=== PATIENT | female | born 1990 | race Hispanic/Latino ===

== ENCOUNTER 2018-06-05 13:47 | Day surgery (SDC) | payer OTHER ==
[2018-06-05 14:41] VITALS: BMI 39.9
--- NOTE | 2018-06-05 15:21 | PDOC.FPROB ---
FMR OB H&P: HPI - History of Present Illness Chief Complaint: Dizziness, SOB Indentification: 27 yo female at 39.4 wks by LMP/16 wk sono History of Present Illness: Ms. Sanches presents with CC of SOB, dizziness that began while taking a hot shower today. At that time she felt "heavy all over", short of breath, and dizzy like she was going to pass out. She turned on the cold water which helped. After laying down, her SOB resolved and she has not had that since. She has continued headache, now improved to 3/10. Denies contractions, N/V, vision changes, vaginal bleeding, discharge, or LOF. Reports low back cramping. Feels movement. Primary Care Physician: Dr. 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 - Family History Family History: family history of DM, maternal and paternal FMR OB H&P: Medications - Current Home Medications: Medication Instructions Recorded Confirmed Type Ferrous Sulfate [Iron] 325 mg PO DAILY 06/05/18 06/05/18 History Vits96/Iron Fum/Folic 1 tab PO DAILY 06/05/18 06/05/18 History [ Tablet] Allergies/Adverse Reactions: Allergies Allergy/AdvReac Type Severity Reaction Status Date / Time No Known Drug Allergies Allergy Verified 06/05/18 14:28 FMR OB H&P: ROS - Review of Systems General: denies: fever/chills Eyes: denies: vision changes, double vision Cardiovascular: denies: chest pain, palpitation Respiratory: reports: shortness of breath. denies: cough Gastrointestinal: denies: abdominal pain, nausea, vomiting Genitourinary (Female): denies: incontinence, dysuria, vaginal discharge, vaginal bleeding, contractions, vaginal pressure Neurologic: reports: headache. denies: syncope FMR OB H&P: Vital Signs - Heart Tones Baseline: 145 Variability: moderate Acceleration: present Deceleration: absent Category: category 1 [place] contractions every: none FMR OB H&P: Physical Exam - Physical Exam General: NAD, awake, alert and oriented HEENT: normocephalic and atraumatic, MMM, grossly normal vision, grossly normal hearing Heart: RRR, normal S1/S2 General: CTAB, no respiratory distress, good air movement, no rales/rhonchi, no wheezing Abdomen: soft, gravid, non-tender, bowel sound present Skin: good tugor, capillary refill <2 seconds FMR OB H&P: A/P - Problem List (1) Status: Acute Qualifiers: Weeks of gestation: 39 weeks Qualified Code(s): Z3A.39 - 39 weeks gestation of (2) Headache Status: Acute Code(s): R51 - HEADACHE Discussion: Date/Time: 06/05/18 1519 Headache - earlier in day associated with dizziness, feeling of passing out, SOB which has since resolved - could be 2/2 orthostatic vs vasovagal cause - PO hydration - Tylenol given - BMP, H/H not concerning - Orthostatic BPs negative sIUP - reactive strip, no contractions - 1-2/40%/-2 per nurse check - no LOF, bleeding, discharge - taking PNV - incomplete anatomy US-growth WNL, unable to visualize face/nose/lips Anemia of - on iron supplement 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 Pt encouraged to increase fluid intake, avoid very hot showers. Return precautions given. Continue taking PNV and iron. This H&P was discussed with Dr. López who agree with the above documentation and plan. Attending Addendum - Attending Addendum Date/Time: 06/05/18 1617 I personally evaluated the patient and discussed the management with Dr. Hyde I agree with the History, Examination, Assessment and Plan documented above with any addition or exceptions noted below. 27 yo female at 39.4 wks by LMP/16 wk eugenio presents for evaluation of presyncopal episode. Reports a sensation of "heaviness all over" and feeling dizzy that lasted less than a minute. During these symptoms she was taking a very hot shower with " lots of steam." No LOC or fall. No previous episodes. Does report a "heaviness to breath" also. Afterwards reports a dull headache. Pain rated 3/10. Reports + FM. Denies contractions, LOF, VB, and discharge. Currently asymptomatic. has been complicated by anemia. VS reviewed. FHT reactive. No acute distress. Resting in bed. MMM RRR, no murmurs CTA bilaterally Fundus firm nontender FROM, no edema 1. sIUP: IOB labs and anatomy reviewed. 2T/3T labs reviewed. s/p Flu/Tdap. 2. Hyperventilation with presyncope: Likely related to environment and gravid state. Orthostatic vital signs negative. Appears euvolemic on exam. Will encourage PO hydration. BMP with decreased CO2. 3. Anemia of : Stable Dispo: ok to d/c to home. ER precautions discussed. Encouraged not to take hot showers. Encouraged to have shower chair available or to switch to bathing. Follow up with PCP next week for routine OV. Yaritza
[2018-06-05] MEDS ORDERED: Acetaminophen 325 MG TAB PO SCH (15:30)
[2018-06-05 16:06] LABS: Hemoglobin 10.2 g/dL (12.0-16.0); Mean Corpuscular HGB CONC 31.8 g/dL (32.0-36.0); Mean Corpuscular Hemoglobin 22.3 pg (27.0-31.0); Mean Corpuscular Volume 70.2 fL (78.0-98.0); Mean Platelet Volume 11.3 fL (7.4-10.4); Platelet Count 231 thou/uL (130-400); Red Blood Cell (RBC) Count 4.56 mill/uL (4.20-5.40); White Blood Cell (WBC) Count 9.7 thou/uL (4.8-10.8)
[2018-06-05 16:20] LABS: Anion Gap 15 mmol/L (10-20); BUN (Urea Nitrogen) 5 mg/dL (7.0-18.7); Calc. Creatinine Clearance 193 mL/min (70-130); Calcium 8.6 mg/dL (7.8-10.44); Carbon Dioxide 14 mmol/L (22-29); Chloride 111 mmol/L (98-107); Estimated GFR-MDRD Greater than 90; Glucose 75 mg/dL (70-105); Potassium 4.2 mmol/L (3.5-5.1); Sodium 136 mmol/L (136-145)
== END 2018-06-05 17:02 | disposition home health service (06) ==
LOC: L&D/OP 13:47
PROVIDERS: ATTEND Student in an Organized Health Care Education/Training Program
DX: O99.89 Other specified diseases and conditions complicating pregnancy, childbirth and the puerperium (principal); R55 Syncope and collapse; R51 Headache; R06.02 Shortness of breath; R42 Dizziness and giddiness; O99.013 Anemia complicating pregnancy, third trimester; D64.9 Anemia, unspecified; Z3A.39 39 weeks gestation of pregnancy; Z79.899 Other long term (current) drug therapy
CPT/HCPCS: 36415; 80048; 85027; 99283

== ENCOUNTER 2018-06-06 18:59 | Inpatient (IN) | payer MEDICAID, OTHER ==
[2018-06-06 19:56] VITALS: BMI 44.4
--- NOTE | 2018-06-06 20:57 | PDOC.FPROB ---
FMR OB H&P: HPI - History of Present Illness Chief Complaint: CTX Indentification: 27yo @ 39.5wks by LMP/16wk US History of Present Illness: This is a 27yo @ 39.5wks by LMP/16 wk US presenting today for CTX that began this morning. Patient stated the CTX picked up around 1500 today every 5 min. Patient was here yesterday for SOB and dizziness that has since resolved. Patient endorses +FM, vaginal mucous that is red. No LOF or devon loss of blood. Patient denies headache, vision changes, LE swelling, abdominal or chest pain. Patient reports CTX in the low back every 5 mins. Primary Care Physician: MICHAEL Elmore FMR OB H&P: Current - Care : 2 Para: 1001 Gestational age: 39.5 Due date: 06/08/18 Dating Criteria: LMP/16wk US Course/Complications: Anemia of pregnacy, GBS pos - OB Labs Blood type: O RH: positive Antibody Screen: negative HIV: negative RPR: negative HepBsAg: negative Rubella: immune Quad screen: unknown Urine drug screen: not done Gonorrhea: negative Chlamydia: negative Pap Smear: wnl 1 hour gtt: 116 GBS: positive - First Trimester Ultrasound First trimester: wnl - Anatomy Survey Anatomy survey: incomplete - unable to visualize face/nose/lips FMR OB H&P: History - Past Medical History PMH: positive TB skin test in 1996 s/p tx for 1year - OB History OB History: 2012 - viable M @ 39 wks - [employer] History [employer] History: pap wnl - Surgical History Sx History: none - Social History Social History: denies tobacco, alcohol or drug use - Family History Family History: Hx of DM on maternal and paternal side FMR OB H&P: Medications - Current Home Medications: Medication Instructions Recorded Confirmed Type Ferrous Sulfate [Iron] 325 mg PO DAILY 06/05/18 06/06/18 History Vits96/Iron Fum/Folic 1 tab PO DAILY 06/05/18 06/06/18 History [ Tablet] Allergies/Adverse Reactions: Allergies Allergy/AdvReac Type Severity Reaction Status Date / Time No Known Drug Allergies Allergy Verified 06/06/18 20:05 FMR OB H&P: ROS - Review of Systems General: denies: fever/chills, weight/appetite/sleep changes, night sweats Eyes: denies: eye pain, vision changes, double vision, scotomas, floaters ENT: denies: nasal congestion, rhinorrhea Cardiovascular: denies: chest pain, palpitation, edema Respiratory: denies: cough, congestion, shortness of breath Gastrointestinal: denies: abdominal pain, indigestion, bloating, cramping, nausea, vomiting, diarrhea, constipation, bright red blood Genitourinary (Female): reports: vaginal bleeding (mucous in consistency), contractions, vaginal pressure. denies: dysuria, vaginal discharge, vaginal pain Musculoskeletal: denies: pain, stiffness, tenderness FMR OB H&P: Vital Signs - Maternal Vital signs: Vital Signs - First Documented Temp Pulse Resp BP 98.5 F 80 20 115/82 06/06/18 19:25 06/06/18 19:25 06/06/18 19:25 06/06/18 19:25 - Heart Tones Baseline: 130 Variability: moderate Acceleration: present Deceleration: absent Category: category 1 [place] contractions every: every 5 min FMR OB H&P: Physical Exam - Physical Exam General: NAD, awake, alert and oriented HEENT: normocephalic and atraumatic, PERRLA, EOMI, MMM, no scleral icterus, grossly normal vision, grossly normal hearing Neck: supple, FROM, trachea midline Chest: non-tender to palpation, no lesions Heart: RRR, normal S1/S2, no murmurs/rubs/gallops, pulses present, other (trace edema bilaterally) General: CTAB, no respiratory distress, good air movement, no wheezing Abdomen: soft, gravid Musculoskeletal: normal gait and station, FROM in all four extremities Neurological: no focal deficit Skin: no rash, good tugor, capillary refill <2 seconds Psychiatric: intact recent and remote memory, good judgement and insight, normal mood and affect FMR OB H&P: A/P - Problem List (1) Intrauterine Current Visit: Yes Status: Acute Code(s): Z34.90 - ENCNTR FOR SUPRVSN OF NORMAL , UNSP, UNSP TRIMESTER Disposition: IUP, latent labor - Check at 0730: 3/60/-2 - Will recheck in 2 hours - Encourage PO Hydration and ambulation - Tylenol and hydroxyzine for pain GBS positive - aware, will consider giving abx if patient makes change at next check Case discussed w/ Dr. French Discussion: Date/Time: 06/06/182053 This H&P was discussed with [] and [] who agree with the above documentation and plan. Attending Addendum - Attending Addendum Date/Time: 06/07/18720 I personally evaluated the patient and discussed the management with Dr. Burris. I agree with the History, Examination, Assessment and Plan documented above with any addition or exceptions noted below.
[2018-06-06] MEDS ORDERED: Acetaminophen 500 MG TAB PO SCH (21:15)
[2018-06-06] MEDS ORDERED: Lidocaine 1% (PF) 30 ML VIAL ONE (21:40)
[2018-06-06] MEDS ORDERED: Oxytocin 10 UNITS/ML VIAL ONE (21:40)
[2018-06-06] MEDS ORDERED: NS / Oxytocin 40 units/1000ml 1,000 ML IV SCH ×2 (21:45→22:45)
[2018-06-06] MEDS ORDERED: Milk Of Magnesia 30 ML UDCUP PO PRN (22:31)
[2018-06-06] MEDS ORDERED: Bisacodyl 10 MG SUPP PR PRN (22:31)
[2018-06-06] MEDS ORDERED: Adacel (T-DAP) 0.5 ML VIAL IM ONE (22:31)
[2018-06-06] MEDS ORDERED: Promethazine HCl 25 MG/ML VIAL IM PRN (23:43)
[2018-06-06] MEDS ORDERED: Ondansetron PF 4 MG/2 ML Vial IVP PRN (23:43)
[2018-06-06 23:58] LABS: Hemoglobin 9.5 g/dL (12.0-16.0); Mean Corpuscular HGB CONC 32.4 g/dL (32.0-36.0); Mean Corpuscular Hemoglobin 22.4 pg (27.0-31.0); Mean Corpuscular Volume 69.2 fL (78.0-98.0); Mean Platelet Volume 11.9 fL (7.4-10.4); Platelet Count 233 thou/uL (130-400); RBC Distribution Width 17.8 % (11.5-14.5); Red Blood Cell (RBC) Count 4.23 mill/uL (4.20-5.40); White Blood Cell (WBC) Count 15.3 thou/uL (4.8-10.8)
[2018-06-07 00:41] LABS: Syphilis Antibody Nonreactive (Nonreactive); Syphilis Antibody Index 0.04 S/CO (<1.00 Non-Reactive)
[2018-06-07 00:42] LABS: HBSAg Index 0.23 S/CO (0-0.99); Hep B Surf Ag Non-Reactive S/CO (NonReactive)
[2018-06-07] MEDS: Ibuprofen 800 MG TAB PO SCH ×4 (01:09→22:09)
[2018-06-07] MEDS ORDERED: Benzocaine/Menthol 20-0.5% 60 ML CAN TOP PRN (01:22)
--- NOTE | 2018-06-07 01:23 | PDOC.OPDEL ---
OB Operative/Delivery Note Delivery Dr/Surgeon: Edwin Burris Williamson Pre-Delivery Diagnosis: active labor Procedure/Post Delivery Dx: spontaneous vaginal delivery Weeks gestation: 39 (39.5wks) Anesthesia: none - Findings A Sex: male - 1 min: 8 - 5 min: 9 - Additional Findings/Plan Placenta delivered: manual removal Repaired Obstetrical Laceration: periurethral Estimated blood loss: 600ml Compilations/Other Findings: This is 27yo F @ 39.5wks who delivered a viable M infant at 2141 on . Following an antepartum course consisting of anemia of on iron and GBS positive w/ inadequate treatment, a vigorous M was delivered over an intact perineum in the occipitoanterior position. Anterior Shoulder and then remainder of the body delivered. No nuchal cord. Thin meconium noted. The head was held down and mouth and nares were bulb suctioned. Cord clamped after delayed cord clamping and cut and cord blood collected. Placenta delivered, manual removal of placenta fragments, with a 3 vessel cord noted. Fundal massage was performed and the fundus was firm. 2nd degree laceration noted and repaired with 3-0 chromic suture in the usual fashion with good approximation and hemostasis after a local anesthetic of 1% lidocaine was injected at site. Right sided periurethral tear that was hemostatic and did not require repair. Infant went to nursery in good condition for routine care. Apgars were 8 /9 at 1 & 5 minutes, respectively. Patient tolerated delivery well and went to after routine recovery/care. Post delivery plan: routine recovery <Tamika Burris - Last Filed: 06/07/18 01:17> Attending Addendum - Attending Addendum Date/Time: 06/07/18 0722 I personally evaluated the patient and discussed the management with Dr. Burris. I was present for the delivery. Patient went walking and delivered precipitously shortly thereafter prior to PCN. MSAF noted. No immediate complications. <Erik French - Last Filed: 06/07/18 07:23>
[2018-06-07 06:11] LABS: Hemoglobin 8.8 g/dL (12.0-16.0); Mean Corpuscular HGB CONC 31.8 g/dL (32.0-36.0); Mean Corpuscular Hemoglobin 22.1 pg (27.0-31.0); Mean Corpuscular Volume 69.6 fL (78.0-98.0); Mean Platelet Volume 11.9 fL (7.4-10.4); Platelet Count 215 thou/uL (130-400); RBC Distribution Width 17.6 % (11.5-14.5); Red Blood Cell (RBC) Count 3.96 mill/uL (4.20-5.40); White Blood Cell (WBC) Count 12.6 thou/uL (4.8-10.8)
--- NOTE | 2018-06-07 06:55 | PDOC.PP ---
Post Progress Note Post Day #: 1 Subjective: Patient doing well this AM. No significant overnight events. Lochia like that of a heavy period. Denies feeling dizzy. Has been ambulating. PO intake tolerated: yes Flatus: yes Ambulation: yes Vital Signs (12 hours) Temp Pulse Resp BP Pulse Ox 06/07/18 03:10 98.1 F 65 20 104/60 96 06/07/18 02:05 98.1 F 75 18 91/50 L 98 06/07/18 01:00 98.0 F 77 18 126/60 97 06/06/18 19:25 98.5 F 80 20 115/82 Weight Weight 106.594 kg - Physical Examination General: NAD Cardiovascular: no m/r/g, RRR Respiratory: clear to auscultation bilaterally, non-labored breathing Abdominal: + bowel sounds, lochia (like that of heavy period), no distention, appropriately TTP Skin: no rash Neurological: no gross focal deficits Psychiatric: A&Ox3, normal affect Result Diagrams: 06/07/18 05:51 Additional Labs: Post Labs Blood Type O POSITIVE 06/06/18 23:50 Hep Bs Antigen Non-Reactive S/CO (NonReactive) 06/06/18 23:50 (1) Term delivered Code(s): O80 - ENCOUNTER FOR FULL-TERM UNCOMPLICATED DELIVERY Status: Acute (2) Anemia affecting Code(s): O99.019 - ANEMIA COMPLICATING , UNSPECIFIED TRIMESTER Status : Acute (3) Positive GBS test Code(s): B95.1 - STREPTOCOCCUS, GROUP B, CAUSING DISEASES CLASSD ELSWHR Status : Acute - Assessment/Plan 27 year old G2 now P2 delivered TAGA M infant at 39.5 wks via on 06/06. Term , delivered - Routine PP care - No complications - Monitor lochia; QBL 600 mL. Lochia like that of heavy period. Pt asymptomatic and hg stable. - Uncertain of contraception GBS positive - Precipitous deliver - Not treated, will stay for 48 hours as needs 48 hour obs Latent TB - Previously treated Dispo: Stable. Plan for d/c home after 48 hours. <Sierra Elmore - Last Filed: 06/07/18 12:35> Weight Weight 106.594 kg Result Diagrams: 06/07/18 05:51 Additional Labs: Post Labs Blood Type O POSITIVE 06/06/18 23:50 Hep Bs Antigen Non-Reactive S/CO (NonReactive) 06/06/18 23:50 <Soni Saldaña - Last Filed: 06/08/18 22:36> Attending Addendum - Attending Addendum Date/Time: 06/08/18 0970 I personally evaluated the patient and discussed the management with Dr. Elmore on 06/07/2018. I agree with the History, Examination, Assessment and Plan documented above with any addition or exceptions noted below- Patient without complaints. Minimal bleeding. Denies any cramping. Afebrile VSS A/P: 1) PPD#1 s/p - Continue routine care. H/H stable. <Soni Saldaña - Last Filed: 06/08/18 22:36>
[2018-06-07] MEDS: Docusate Calcium (SURFAK) 240 MG CAP PO SCH ×2 (10:19→22:08)
[2018-06-07] MEDS: Ferrous Sulfate 325 MG TAB PO SCH ×2 (10:19→16:40)
[2018-06-08] MEDS: Ibuprofen 800 MG TAB PO SCH ×3 (06:00→13:55)
--- NOTE | 2018-06-08 07:07 | PDOC.PP ---
Post Progress Note Post Day #: 2 Subjective: Ms. Sanches is returning from the restroom. She reports urinating normally, ambulating, denies pain, SOB. She is currently bleeding at about the level of a normal cycle for her. PO intake tolerated: yes Flatus: yes Ambulation: yes Vital Signs (12 hours) Temp Pulse Resp BP Pulse Ox 06/07/18 20:23 98.2 F 71 24 H 108/56 L 97 Weight Weight 106.594 kg - Physical Examination General: NAD Cardiovascular: no m/r/g, RRR Respiratory: clear to auscultation bilaterally Abdominal: + bowel sounds Skin: no rash Neurological: no gross focal deficits Psychiatric: normal affect Result Diagrams: 06/07/18 05:51 Additional Labs: Post Labs Blood Type O POSITIVE 06/06/18 23:50 Hep Bs Antigen Non-Reactive S/CO (NonReactive) 06/06/18 23:50 (1) Latent tuberculosis Status: Acute (2) Positive GBS test Code(s): B95.1 - STREPTOCOCCUS, GROUP B, CAUSING DISEASES CLASSD ELSWHR Status : Acute (3) Term delivered Code(s): O80 - ENCOUNTER FOR FULL-TERM UNCOMPLICATED DELIVERY Status: Acute - Assessment/Plan 27 year old G2 now P2 delivered TAGA M at 39.5 wks via on 06/06. Term , delivered - Routine PP care - No complications - Monitor lochia; QBL 600 mL. Lochia like that of normal period. Pt asymptomatic and hg stable. - Uncertain of contraception GBS positive - Precipitous delivery - Not treated, will stay for 48 hours as needs 48 hour obs Latent TB - Previously treated Dispo: Stable. Plan for d/c home after 48 hours. <Jimmy Monzon - Last Filed: 06/08/18 08:02> Weight Weight 106.594 kg Result Diagrams: 06/07/18 05:51 Additional Labs: Post Labs Blood Type O POSITIVE 06/06/18 23:50 Hep Bs Antigen Non-Reactive S/CO (NonReactive) 06/06/18 23:50 <Soni Saldaña - Last Filed: 06/08/18 22:38> Attending Addendum - Attending Addendum Date/Time: 06/08/182235 I personally evaluated the patient and discussed the management with Dr. Monzon I agree with the History, Examination, Assessment and Plan documented above with any addition or exceptions noted below- Patient without complaints. Ready to go home. Ambulating without difficulty. Afebrile VSS. A/P: 1) PPD#2 /p - doing well. Plan to d/c home later today. <Soni Saldaña - Last Filed: 06/08/18 22:38>
[2018-06-08 07:58] VITALS: BP 132/77; TEMP 97.9
[2018-06-08] MEDS: Ferrous Sulfate 325 MG TAB PO SCH (08:32)
[2018-06-08] MEDS: Docusate Calcium (SURFAK) 240 MG CAP PO SCH (08:32)
== END 2018-06-08 18:10 | disposition home or self-care (01) | DRG 807 ==
LOC: L&D/OP 18:59 → L&D 21:44 → 3SE 06-07 00:55 → 3SW 06-07 08:19
PROVIDERS: ADMIT Student in an Organized Health Care Education/Training Program; ATTEND Student in an Organized Health Care Education/Training Program
PROC: 10E0XZZ Delivery of Products of Conception, External Approach (ICD-10-PCS; principal; 2018-06-06)
PROC: 10D17Z9 Manual Extraction of Products of Conception, Retained, Via Natural or Artificial Opening (ICD-10-PCS; 2018-06-06)
PROC: 0KQM0ZZ Repair Perineum Muscle, Open Approach (ICD-10-PCS; 2018-06-06)
DX: O99.824 Streptococcus B carrier state complicating childbirth (principal); Z37.0 Single live birth; O62.3 Precipitate labor; O99.02 Anemia complicating childbirth; D64.9 Anemia, unspecified; O70.1 Second degree perineal laceration during delivery; O73.1 Retained portions of placenta and membranes, without hemorrhage; O77.0 Labor and delivery complicated by meconium in amniotic fluid; Z3A.39 39 weeks gestation of pregnancy
CPT/HCPCS: 36415; 85027; 86780; 86850; 86900; 86901; 87340; 99285; J2001; J2590

== ENCOUNTER 2019-10-17 11:21 | Emergency (ER) | payer MEDICAID, OTHER, SELFPAY | END 2019-10-17 12:20 | disposition home or self-care (01) | LOC: ERS 11:21 | DX: J02.8 Acute pharyngitis due to other specified organisms (principal) | CPT/HCPCS: 87081; 87430; 99283 ==

== ENCOUNTER 2020-01-11 11:51 | Emergency (ER) | payer OTHER, SELFPAY ==
[2020-01-12 14:15] LABS: SARS-CoV-2 MS2 Positive; SARS-CoV-2 N Gene Positive; SARS-CoV-2 S Gene Positive; SARS-CoV-2 orf1ab Positive
== END 2020-01-11 12:13 | disposition home or self-care (01) ==
LOC: ERS 11:51
DX: U07.1 COVID-19 (principal); M54.9 Dorsalgia, unspecified; R51 Headache
CPT/HCPCS: 87635; 99283; U0003

== ENCOUNTER 2021-07-06 06:40 | Emergency (ER) | payer SELFPAY ==
[2021-07-06] MEDS ORDERED: Dexamethasone 10 MG/ML VIAL ONE (07:29)
[2021-07-06] MEDS ORDERED: diphenhydrAMINE 25 MG CAP ONE (07:31)
[2021-07-06] MEDS ORDERED: Famotidine 20 MG TAB ONE (07:31)
== END 2021-07-06 07:41 | disposition home or self-care (01) ==
LOC: ERS 06:40
DX: K12.2 Cellulitis and abscess of mouth (principal); J02.9 Acute pharyngitis, unspecified
CPT/HCPCS: 87081; 87430; 99283; J1100

== ENCOUNTER 2022-05-30 16:19 | Observation (INO) | payer SELFPAY ==
[2022-05-30 17:11] LABS: #Basophils 0.1 thou/uL (0.0-0.2); #Eosinphils 0.2 thou/uL (0.0-0.7); #Monocytes 0.7 thou/uL (0.11-0.59); #Neutrophils 5.7 thou/uL (1.40-6.50); %Basophils 0.7 % (0.0-1.0); %Eosinophils 1.9 % (0.0-10.0); %Lymphocytes 42.8 % (21.0-51.0); %Monocytes 5.7 % (0.0-10.0); %Neutrophils 48.9 % (42.0-75.0); Mean Corpuscular HGB CONC 32.4 g/dL (32.0-36.0); Mean Corpuscular Hemoglobin 21.8 pg (27.0-31.0); Mean Corpuscular Volume 67.2 fl (78.0-98.0); Mean Platelet Volume 10.8 fL (7.4-10.4); Platelet Count 345 10x3/uL (130-400); Red Blood Cell (RBC) Count 5.03 mill/uL (4.20-5.40); White Blood Cell (WBC) Count 11.6 10x3/uL (4.8-10.8)
[2022-05-30 17:12] LABS: ALT (SGPT) 17 U/L (8-55); AST (SGOT) 21 U/L (5-34); Albumin 4.3 g/dL (3.5-5.0); Alkaline Phosphatase 98 U/L (40-110); Anion Gap 13 mmol/L (10-20); BUN (Urea Nitrogen) 8 mg/dL (7.0-18.7); Bilirubin, Total 0.5 mg/dL (0.2-1.2); Calc. Creatinine Clearance 0 mL/min (70-130); Calcium 9.4 mg/dL (7.8-10.44); Carbon Dioxide 24 mmol/L (22-29); Chloride 106 mmol/L (98-107); Estimated GFR 109; Globulin 4.1 g/dL (2.4-3.5); Glucose 110 mg/dL (70-105); MDiff Complete? YES; Microcytosis SLIGHT = 6-15 cells (100X) (0-5/hpf); Platelet Morphology Comment Appears Adequate; Polychromasia SLIGHT = 2-3 cells (100X) (0-2/hpf); Potassium 3.7 mmol/L (3.5-5.1); Protein, Total 8.4 g/dL (6.0-8.3); Sodium 139 mmol/L (136-145)
[2022-05-30 17:17] LABS: PTT 29.3 sec (22.9-36.1); Prothrombin Time 13.2 sec (12.0-14.7)
[2022-05-30 18:54] LABS: Bilirubin Negative (Negative); Blood, Urine Negative (Negative); Clarity Clear (Clear); Glucose, Urine (Dipstick) Normal (Negative); Ketone, Urine Negative (Negative); Leukocyte Negative Leu/uL (Negative); Nitrite Negative (Negative); Protein, Urine (Dipstick) Negative (Neg-Trace); Specific Gravity, Urine 1.017 (1.002-1.036); Urobilinogen Normal mg/dL (Less than 2)
[2022-05-30 18:55] LABS: Pregnancy Test - Urine (BHCG) Negative (Negative); Pregu Control Background? CLEAR/WHITE (CLR/WHITE); Pregu Control Bar Appear? YES (CONTROL BAR); Specific Gravity 1.017 (1.002-1.036)
[2022-05-30] MEDS ORDERED: Acetaminophen 325 MG TAB PO PRN (19:38)
[2022-05-30] MEDS ORDERED: hydrALAZINE 20 MG/ML VIAL SLOW IVP PRN (19:38)
[2022-05-30] MEDS ORDERED: Ondansetron PF 4 MG/2 ML Vial IVP PRN (19:38)
[2022-05-30] MEDS ORDERED: Ondansetron ODT 4 MG TAB PO PRN (19:38)
[2022-05-30] MEDS ORDERED: Aspirin 81 mg Enteric Coated Tablet PO SCH (20:00)
[2022-05-30 20:23] LABS: Hemoglobin A1c 5.8 % (4.0-6.0)
[2022-05-30] MEDS ORDERED: Atorvastatin Calcium 40 MG TAB PO SCH (21:00)
[2022-05-30 21:31] VITALS: BMI 41.8
[2022-05-31 05:46] LABS: #Basophils 0.1 thou/uL (0.0-0.2); #Eosinphils 0.3 thou/uL (0.0-0.7); #Lymphocytes 2.8 thou/uL (1.20-3.40); #Monocytes 0.5 thou/uL (0.11-0.59); #Neutrophils 3.6 thou/uL (1.40-6.50); %Basophils 1.1 % (0.0-1.0); %Eosinophils 3.7 % (0.0-10.0); %Lymphocytes 38.8 % (21.0-51.0); %Monocytes 6.2 % (0.0-10.0); %Neutrophils 50.2 % (42.0-75.0); Hemoglobin 9.5 g/dL (12.0-16.0); Hypochromia SLIGHT = 6-15 cells (100X) (0-5/hpf); MDiff Complete? YES; Mean Corpuscular HGB CONC 29.7 g/dL (32.0-36.0); Mean Corpuscular Hemoglobin 20.4 pg (27.0-31.0); Mean Corpuscular Volume 68.8 fl (78.0-98.0); Mean Platelet Volume 10.5 fL (7.4-10.4); Microcytosis SLIGHT = 6-15 cells (100X) (0-5/hpf); Platelet Count 321 10x3/uL (130-400); RBC Distribution Width 16.9 % (11.5-14.5); Red Blood Cell (RBC) Count 4.63 mill/uL (4.20-5.40); White Blood Cell (WBC) Count 7.2 10x3/uL (4.8-10.8)
[2022-05-31 05:49] LABS: Anion Gap 11 mmol/L (10-20); BUN (Urea Nitrogen) 9 mg/dL (7.0-18.7); Calc. Creatinine Clearance 199 mL/min (70-130); Calcium 8.5 mg/dL (7.8-10.44); Carbon Dioxide 20 mmol/L (22-29); Cardiac Risk 5.9 (Less than 4.5); Chloride 110 mmol/L (98-107); Cholesterol 159 mg/dl (< 200 Desired); Estimated GFR 120; Glucose 111 mg/dL (70-105); HDL Cholesterol 27 mg/dL (>60 Neg Risk); LDL Cholesterol, Calculated 81 mg/dL; Potassium 4.1 mmol/L (3.5-5.1); Sodium 137 mmol/L (136-145); Triglycerides 256 mg/dL (Less than 150)
[2022-05-31] MEDS ORDERED: Aspirin 81 mg Enteric Coated Tablet PO SCH (09:00)
[2022-05-31 16:45] VITALS: BP 109/67; TEMP 98.2
== END 2022-05-31 16:57 | disposition home or self-care (01) ==
LOC: ERS 16:19 → 2SW 18:54
PROVIDERS: ADMIT Internal Medicine; ATTEND Internal Medicine
DX: R20.2 Paresthesia of skin (principal); D72.829 Elevated white blood cell count, unspecified; I08.8 Other rheumatic multiple valve diseases; E66.01 Morbid (severe) obesity due to excess calories; Z68.41 Body mass index [BMI] 40.0-44.9, adult; Z20.822 Contact with and (suspected) exposure to COVID-19
CPT/HCPCS: 36415; 36416; 70450; 70551; 71045; 80048; 80053; 80061; 81003; 81025; 83036; 83605; 84443; 84484; 85025; 85610; 85730; 87040; 87804; 93005; 93306; 94760; G0378; U0003; U0005

== ENCOUNTER 2023-03-16 20:20 | Emergency (ER) | payer OTHER, SELFPAY ==
[2023-03-16] MEDS ORDERED: predniSONE 20 MG TAB ONE (21:28)
== END 2023-03-16 21:45 | disposition home or self-care (01) ==
LOC: ERS 20:20
DX: T78.40XA Allergy, unspecified, initial encounter (principal)
CPT/HCPCS: 99282; J7512

== ENCOUNTER 2025-04-07 23:36 | Inpatient (IN) | payer SELFPAY ==
[2025-04-08] MEDS ORDERED: Ondansetron PF 4 MG/2 ML Vial IVP PRN (00:19)
[2025-04-08 01:27] VITALS: BMI 36.1
[2025-04-08 05:55] LABS: #Eosinophils 0.14 10x3/uL (0.0-0.7); #Monocytes 0.33 10x3/uL (0.11-0.59); #Neutrophils 2.58 10x3/uL (1.40-6.50); %Basophils 1.0 % (0.0-1.0); %Eosinophils 2.9 % (0.0-10.0); %Lymphocytes 35.8 % (21.0-51.0); %Monocytes 6.8 % (0.0-10.0); %Neutrophils 53.1 % (42.0-75.0); Hematocrit 37.1 % (36.0-47.0); Hemoglobin 11.4 g/dL (12.0-16.0); Mean Corpuscular Hemoglobin 23.8 pg (27.0-31.0); Mean Corpuscular Volume 77.6 fL (78.0-98.0); Platelet Count 307 10x3/uL (130-400); Red Blood Cell (RBC) Count 4.78 mill/uL (4.20-5.40); White Blood Cell (WBC) Count 4.86 10x3/uL (4.8-10.8)
[2025-04-08 05:56] LABS: #Basophils 0.05 10x3/uL (0.0-0.2)
[2025-04-08 06:12] LABS: ALT (SGPT) 352 U/L (Less than 34); AST (SGOT) 278 U/L (11-34); Albumin 3.3 g/dL (3.1-4.5); Alkaline Phosphatase 145 U/L (40-110); Anion Gap 13 mmol/L (10-20); BUN (Urea Nitrogen) 4 mg/dL (7.0-18.7); Bilirubin, Total 4.8 mg/dL (0.3-1.2); Calc. Creatinine Clearance 181 mL/min (70-130); Calcium 8.5 mg/dL (7.8-10.44); Carbon Dioxide 20 mmol/L (22-29); Chloride 111 mmol/L (98-107); Globulin 3.2 g/dL (2.4-3.5); Glucose 98 mg/dL (70-105); Potassium 3.6 mmol/L (3.5-5.1); Sodium 140 mmol/L (136-145)
[2025-04-08 08:38] LABS: Hep A IgM AB NONREACTIVE (NonReactive); Hep A IgM S/CO 0.17 S/CO (0-0.79); Hep B Core IgM Index 0.10 S/CO (0-0.79); Hep B Surf Ag NONREACTIVE S/CO (NonReactive); Hep C IgG Ab NONREACTIVE S/CO (NonReactive); Hep C Index 0.17 S/CO (0-0.79)
[2025-04-08 10:32] LABS: BHCG - Serum Negative (NEGATIVE); Pregs Control Background? CLEAR/WHITE (CLR/WHITE); Pregs Control Bar Appear? YES (CONTROL BAR)
[2025-04-08] MEDS ORDERED: SUCCINYLCHOLINE/SOD CL,ISO/PF 200 MG/10 ML SYRINGE FS ONE (11:10)
[2025-04-08] MEDS ORDERED: PROPOFOL 20 ML ONE (11:10)
[2025-04-08] MEDS ORDERED: fentaNYL PF 100 MCG/2 ML SYRINGE ONE (11:10)
[2025-04-08] MEDS ORDERED: Ondansetron PF 4 MG/2 ML Vial ONE (11:10)
[2025-04-08] MEDS ORDERED: Rocuronium Bromide 10 MG/ML (10ML VIAL) ONE (11:10)
[2025-04-08] MEDS ORDERED: SUGAMMADEX SODIUM 200 MG/2 ML VIAL ONE (12:39)
[2025-04-09 05:02] LABS: #Basophils 0.04 10x3/uL (0.0-0.2); #Eosinophils 0.03 10x3/uL (0.0-0.7); #Monocytes 0.37 10x3/uL (0.11-0.59); #Neutrophils 5.16 10x3/uL (1.40-6.50); %Basophils 0.5 % (0.0-1.0); %Eosinophils 0.4 % (0.0-10.0); %Lymphocytes 25.1 % (21.0-51.0); %Monocytes 4.9 % (0.0-10.0); %Neutrophils 68.8 % (42.0-75.0); Hematocrit 36.5 % (36.0-47.0); Hemoglobin 11.0 g/dL (12.0-16.0); Mean Corpuscular Hemoglobin 23.8 pg (27.0-31.0); Mean Corpuscular Volume 79.0 fL (78.0-98.0); Platelet Count 335 10x3/uL (130-400); Red Blood Cell (RBC) Count 4.62 mill/uL (4.20-5.40); White Blood Cell (WBC) Count 7.50 10x3/uL (4.8-10.8)
[2025-04-09 05:49] LABS: ALT (SGPT) 295 U/L (Less than 34); AST (SGOT) 196 U/L (11-34); Albumin 3.2 g/dL (3.1-4.5); Alkaline Phosphatase 158 U/L (40-110); Anion Gap 13 mmol/L (10-20); BUN (Urea Nitrogen) 5 mg/dL (7.0-18.7); Bilirubin, Total 4.2 mg/dL (0.3-1.2); Calc. Creatinine Clearance 170 mL/min (70-130); Calcium 8.6 mg/dL (7.8-10.44); Carbon Dioxide 21 mmol/L (22-29); Chloride 108 mmol/L (98-107); Globulin 3.4 g/dL (2.4-3.5); Glucose 86 mg/dL (70-105); Iron 37 ug/dL (50-170); Iron Binding Capacity, Total 354 mcg/dL (265-497); Potassium 4.0 mmol/L (3.5-5.1); Sodium 138 mmol/L (136-145)
[2025-04-10 05:54] LABS: #Basophils 0.05 10x3/uL (0.0-0.2); #Eosinophils 0.24 10x3/uL (0.0-0.7); #Monocytes 0.36 10x3/uL (0.11-0.59); #Neutrophils 2.28 10x3/uL (1.40-6.50); %Basophils 0.8 % (0.0-1.0); %Eosinophils 3.9 % (0.0-10.0); %Lymphocytes 51.5 % (21.0-51.0); %Monocytes 5.9 % (0.0-10.0); %Neutrophils 37.6 % (42.0-75.0); Hematocrit 35.1 % (36.0-47.0); Hemoglobin 10.6 g/dL (12.0-16.0); Mean Corpuscular Hemoglobin 23.7 pg (27.0-31.0); Mean Corpuscular Volume 78.5 fL (78.0-98.0); Platelet Count 324 10x3/uL (130-400); Red Blood Cell (RBC) Count 4.47 mill/uL (4.20-5.40); White Blood Cell (WBC) Count 6.08 10x3/uL (4.8-10.8)
[2025-04-10 06:12] LABS: ALT (SGPT) 223 U/L (Less than 34); AST (SGOT) 123 U/L (11-34); Albumin 3.0 g/dL (3.1-4.5); Alkaline Phosphatase 141 U/L (40-110); Anion Gap 11 mmol/L (10-20); BUN (Urea Nitrogen) 5 mg/dL (7.0-18.7); Bilirubin, Total 2.5 mg/dL (0.3-1.2); Calc. Creatinine Clearance 135 mL/min (70-130); Calcium 8.3 mg/dL (7.8-10.44); Carbon Dioxide 24 mmol/L (22-29); Chloride 110 mmol/L (98-107); Globulin 3.3 g/dL (2.4-3.5); Glucose 91 mg/dL (70-105); Potassium 3.7 mmol/L (3.5-5.1); Sodium 141 mmol/L (136-145)
[2025-04-10] MEDS ORDERED: PROPOFOL 20 ML ONE ×2 (12:42→14:21)
[2025-04-10] MEDS ORDERED: Rocuronium Bromide 10 MG/ML (10ML VIAL) ONE (12:43)
[2025-04-10] MEDS ORDERED: CEFAZOLIN 2 GM VIAL ONE (12:46)
[2025-04-10] MEDS ORDERED: Bupivacaine 0.25% HCL 30 ML VIAL ONE (12:47)
[2025-04-10] MEDS ORDERED: Ketamine In 0.9 % NaCl 50 MG/5 ML SYRINGE ONE (13:28)
[2025-04-10] MEDS ORDERED: Ondansetron PF 4 MG/2 ML Vial ONE (13:39)
[2025-04-10] MEDS ORDERED: PHENYLEPHRINE-NS 100 MCG/ML 10 ML SYRINGE ONE (13:48)
[2025-04-10] MEDS ORDERED: NEOSTIGMINE 3 MG/3 ML SYRINGE ONE (14:22)
[2025-04-10] MEDS ORDERED: Glycopyrrolate 0.2 MG/ML 5 ML SYRINGE ONE (14:22)
[2025-04-10] MEDS ORDERED: fentaNYL PF 100 MCG/2 ML SYRINGE ONE (14:28)
[2025-04-10] MEDS ORDERED: SUGAMMADEX SODIUM 200 MG/2 ML VIAL ONE (14:30)
[2025-04-10] MEDS ORDERED: HYDROmorphone 0.5 MG/0.5 ML SYRINGE ONE (15:20)
[2025-04-10] MEDS: Methocarbamol 500 MG TAB PO PRN (20:20)
[2025-04-10] MEDS: Acetaminophen 325 MG TAB PO PRN (20:21)
[2025-04-10 20:24] VITALS: BP 122/79; TEMP 98.2
== END 2025-04-10 21:13 | disposition home or self-care (01) | DRG 419 ==
LOC: SURG B 04-08 00:12
PROVIDERS: ADMIT Internal Medicine; ATTEND Internal Medicine
PROC: 0F798ZZ Dilation of Common Bile Duct, Via Natural or Artificial Opening Endoscopic (ICD-10-PCS; 2025-04-08)
PROC: 3E03329 Introduction of Other Anti-infective into Peripheral Vein, Percutaneous Approach (ICD-10-PCS; 2025-04-08)
PROC: 0FT44ZZ Resection of Gallbladder, Percutaneous Endoscopic Approach (ICD-10-PCS; principal; 2025-04-10)
PROC: 8E0W4CZ Robotic Assisted Procedure of Trunk Region, Percutaneous Endoscopic Approach (ICD-10-PCS; 2025-04-10)
PROC: 3E033XZ Introduction of Vasopressor into Peripheral Vein, Percutaneous Approach (ICD-10-PCS; 2025-04-10)
DX: K80.42 Calculus of bile duct with acute cholecystitis without obstruction (principal); E11.9 Type 2 diabetes mellitus without complications; E66.9 Obesity, unspecified; D64.9 Anemia, unspecified; Z68.36 Body mass index [BMI] 36.0-36.9, adult
CPT/HCPCS: 36415; 74181; 76376; 80053; 80074; 82728; 83540; 83550; 83690; 84703; 85025; 88304; C1713; C1889; J0169; J0665; J1100; J1171; J2250; J2543; J2704; J3010; J3490; J7120; Q9967; S2900; S8037